=== PATIENT | female | born 1995 | race Caucasian/White ===

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

== ENCOUNTER 2019-09-17 09:00 | Inpatient (IN) | payer OTHER ==
[2019-09-17 10:14] VITALS: BMI 33.2
[2019-09-17 10:42] LABS: BASO % 0.4 % (0-2.0); EOS % 1.1 % (0-4.5); HEMATOCRIT 19.1 % (32.4-45.2); LYMPH % 23.3 % (8-40); MCHC 28.9 g/dl (32.0-36.0); MEAN CELL VOLUME 59.8 fl (80-96); MEAN PLT VOLUME 9.8 fl (7.5-11.1); MONO % 8.5 % (3.8-10.2); NEUT % 66.7 % (42.8-82.8); RBC 3.19 M/mm3 (3.60-5.2); RDW 20.9 % (11.6-15.6); WHITE BLOOD COUNT 7.4 K/mm3 (4.0-10.0)
[2019-09-17 10:50] LABS: INR 0.92 (0.83-1.09); PROTHROMBIN TIME (PATIENT) 10.8 SEC (9.7-13.0)
[2019-09-17 10:53] LABS: ACTIVATED PTT 25.1 SECONDS (25.2-36.5)
[2019-09-17 10:54] LABS: MCH 17.3 pg (25.7-33.7)
[2019-09-17 10:59] LABS: HEMOGLOBIN 5.5 GM/dL (10.7-15.3)
[2019-09-17 11:13] LABS: BLOOD UREA NITROGEN 8.9 mg/dL (7-18); CREATININE 0.5 mg/dL (0.55-1.3); POTASSIUM 4.1 mmol/L (3.5-5.1)
[2019-09-17 12:57] LABS: ANISOCYTOSIS 1+; MACROCYTOSIS 1+; PLATELET ESTIMATE NORMAL
[2019-09-17] MEDS ORDERED: DEXTROSE 5%-LACTATED RINGERS 1,000 ML IV SCH (14:00)
--- NOTE | 2019-09-17 14:07 | HP ---
Past Medical History - Admission Chief Complaint: Elective induction History of Present Illness: 24 yo @ 39 weeks gestation, EDC 09/19/19, admitted for induction of labor. She was found to be severely anemic; blood transfusion ordered. History Source: Patient Limitations to Obtaining History: No Limitations - Past Medical History ...: 2 ...Para: 1 ...Term: 1 ...: 0 ...Spon : 0 ...Induced : 0 ...Living Children: 1 ...Multiple Gestation: 0 ...EDC by Sono: 09/19/19 - Past Surgical History Past Surgical History: Yes: None Hx Myomectomy: No Hx Transabdominal Cerclage: No - Smoking History Smoking history: Never smoked Have you smoked in the past 12 months: No Aproximately how many cigarettes per day: 0 - Alcohol/Substance Use Hx Alcohol Use: No History of Substance Use: reports: None - Social History Usual Living Arrangement: Yes: With Significant Other History of Recent Travel: No Home Medications - Allergies Allergies/Adverse Reactions: Allergies Allergy/AdvReac Type Severity Reaction Status Date / Time No Known Allergies Allergy Verified 08/07/16 13:56 - Home Medications Home Medications: Ambulatory Orders Iron 1 tablet PO TID 11/11/16 Pnv 29-1 Tablet 1 tablet PO DAILY 11/11/16 Family Medical History Family History: Unremarkable Review of Systems - Review of Systems Constitutional: reports: No Symptoms Eyes: reports: No Symptoms HENT: reports: No Symptoms Neck: reports: No Symptoms Cardiovascular: reports: No Symptoms Respiratory: reports: No Symptoms Gastrointestinal: reports: No Symptoms Genitourinary: reports: No Symptoms Musculoskeletal: reports: No Symptoms Psychiatric: reports: No Symptoms Pain Intensity: 0 Physical Exam - Maternity Vital Signs: Vital Signs Temperature 98.8 F 09/17/19 12:00 Pulse Rate 93 H 09/17/19 11:00 Respiratory Rate 18 09/17/19 11:00 Blood Pressure 118/68 09/17/19 11:00 O2 Sat by Pulse Oximetry (%) Constitutional: Yes: No Distress Eyes: Yes: Conjunctiva Clear HENT: Yes: Atraumatic Neck: Yes: Supple Cardiovascular: Yes: Regular Rate and Rhythm Lungs: Clear to auscultation - Abdominal Exam/OB Number of Fetuses: Single Presentation: Vertex - Physical Exam ...Motor Strength: WNL Psychiatric: Yes: Alert, Oriented - Labs Lab Results: CBC, BMP 09/17/19 10:05 09/17/19 10:05 Problem List - Problems (1) 39 weeks gestation of Problems reviewed: Yes Code(s): Z3A.39 - 39 WEEKS GESTATION OF Assessment/Plan 39 weeks gestation Anemia of Blood Transfusion
[2019-09-17] MEDS ORDERED: ELECTROLYTE-148 SOLN 1,000 ML IV ONE (21:30)
--- NOTE | 2019-09-17 22:39 | PN ---
Progress Note (short form) - Note Progress Note: as per request of DR Franks , cervidil was inserted at 1035pm, fhr cat 1, no contraction cx 1 cm 50 vx -3 , fhr cat 1, no contraction
[2019-09-17] MEDS ORDERED: DINOPROSTONE 10 MG VAGINAL SUPPOSITORY VG ONE (22:51)
[2019-09-18] MEDS ORDERED: ELECTROLYTE-148 SOLN 1,000 ML IV ONE (06:00)
[2019-09-18] MEDS ORDERED: BUTORPHANOL TARTRATE 1 MG/ML VIAL IVPUSH PRN (11:22)
--- NOTE | 2019-09-18 11:22 | PN ---
Progress Note (short form) - Note Progress Note: 24 yo @ 39 weeks gestation, EDC 09/19/19, admitted for cervidil induction. Upon admission she was found to be severely anemic; she received 2u of PRBC's. She's seen and evaluated this morning. Cervidil was removed. FHR : Reassuring [place] : Irregular contractions VE : /-3 A/P : 39 weeks gestation Status post blood transfusion Status post Cervidil Start Pitocin Analgesia as needed Problem List - Problems (1) 39 weeks gestation of Code(s): Z3A.39 - 39 WEEKS GESTATION OF
[2019-09-18] MEDS ORDERED: PROMETHAZINE HCL 25 MG/1 ML VIAL IVPB PRN (11:23)
[2019-09-18] MEDS ORDERED: OXYTOCIN 30 UNITS in 0.9% NS 30 UNIT/500 ML INFUS.BAG IVPB SCH (11:30)
[2019-09-18 12:19] LABS: BASO % 0.4 % (0-2.0); EOS % 0.9 % (0-4.5); HEMATOCRIT 26.4 % (32.4-45.2); HEMOGLOBIN 7.9 GM/dL (10.7-15.3); MCHC 29.9 g/dl (32.0-36.0); MEAN CELL VOLUME 63.7 fl (80-96); MEAN PLT VOLUME 9.3 fl (7.5-11.1); MONO % 7.4 % (3.8-10.2); NEUT % 74.3 % (42.8-82.8); PLATELET COUNT 115 K/MM3 (134-434); RBC 4.15 M/mm3 (3.60-5.2); RDW 25.9 % (11.6-15.6); WHITE BLOOD COUNT 9.4 K/mm3 (4.0-10.0)
[2019-09-18] MEDS ORDERED: OXYTOCIN 30 UNITS in 0.9% NS 30 UNIT/500 ML INFUS.BAG IVPB ONE (12:20)
[2019-09-18] MEDS ORDERED: AMPICILLIN SODIUM 2 GM VIAL ONE (12:40)
[2019-09-18] MEDS ORDERED: AMPICILLIN - 2 GM in SODIUM CHLORIDE 100 ML IVPB ONE (12:45)
[2019-09-18] MEDS ORDERED: PROMETHAZINE HCL 25 MG/1 ML VIAL ONE (15:15)
[2019-09-18] MEDS ORDERED: BUTORPHANOL TARTRATE 1 MG/ML VIAL ONE ×2 (15:15)
[2019-09-18] MEDS ORDERED: AMPICILLIN SODIUM 1 GM VIAL ONE ×2 (16:10→21:20)
[2019-09-18] MEDS: AMPICILLIN - 1 GM in SODIUM CHLORIDE 100 ML IVPB SCH ×2 (16:29→20:44)
[2019-09-18] MEDS ORDERED: FENTANYL/BUPIVACAINE/NS/PF - PCEA - 50 ML DISP.SYRIN EP ONE (18:00)
[2019-09-18] MEDS ORDERED: PCA PUMP NR ONE (18:00)
[2019-09-18] MEDS ORDERED: NALOXONE HCL 0.4 MG/ML VIAL IVPUSH PRN (18:08)
[2019-09-18] MEDS ORDERED: BUPIVACAINE HCL/PF 0.25% (2.5MG/ML) 10 ML VIAL ONE (18:10)
[2019-09-18] MEDS ORDERED: FENTANYL/BUPIVACAINE/NS/PF - PCEA - 50 ML DISP.SYRIN EP SCH (18:15)
[2019-09-18 21:03] LABS: BASO % 0.1 % (0-2.0); EOS % 0.1 % (0-4.5); HEMATOCRIT 27.8 % (32.4-45.2); HEMOGLOBIN 8.4 GM/dL (10.7-15.3); LYMPH % 8.7 % (8-40); MEAN CELL VOLUME 64.2 fl (80-96); MEAN PLT VOLUME 10.1 fl (7.5-11.1); MONO % 5.2 % (3.8-10.2); NEUT % 85.9 % (42.8-82.8); PLATELET COUNT 138 K/MM3 (134-434); RBC 4.33 M/mm3 (3.60-5.2); WHITE BLOOD COUNT 11.8 K/mm3 (4.0-10.0)
[2019-09-18] MEDS ORDERED: OXYTOCIN 20 UNITS in 0.9% NS 20 UNIT/1,000 ML INFUS.BAG IV ONE (21:04)
[2019-09-18 21:11] LABS: MCH 19.3 pg (25.7-33.7)
[2019-09-18] MEDS ORDERED: BENZOCAINE 20% 57 GM BOTTLE TP PRN (21:57)
[2019-09-18] MEDS ORDERED: BENZOCAINE 28 GM HEMORRHOIDAL OINTMENT TP PRN (21:57)
[2019-09-18] MEDS ORDERED: ACETAMINOPHEN 325 MG TABLET (FP) PO PRN (21:57)
[2019-09-18] MEDS ORDERED: METHYLERGONOVINE MALEATE 0.2 MG/1 ML AMP IM PRN (21:57)
[2019-09-18] MEDS ORDERED: WITCH HAZEL 50% (TUCKS) 40 PAD/JAR PAD TP PRN (21:57)
[2019-09-18] MEDS ORDERED: BISACODYL 10 MG SUPP.RECT RC PRN (21:57)
[2019-09-18] MEDS ORDERED: OXYTOCIN 20 UNITS in 0.9% NS 20 UNIT/1,000 ML INFUS.BAG IV SCH (22:00)
--- NOTE | 2019-09-18 22:02 | PN ---
Delivery - Delivery Vaginal Delivery: Spontaneous Type of Anesthesia: Epidural Episiotomy/Laceration: 1st degree EBL (cc): 400 Delivery, Single - [place] Feeding Plan Initial Plan: Exclusive throughout hospitalization Remarks - Remarks Remarks: Normal spontaneous vaginal delivery of a live girl over first degree laceration. Nose / Oropharynx suctioned @ perineum. Nuchal cord x 1 clamped and cut. Baby handed to mother then to nurse. Placenta expelled spontaneously intact. Mother in stable condition.
[2019-09-18] MEDS ORDERED: IBUPROFEN 600 MG TABLET (FP) PO ONE (23:52)
[2019-09-18] MEDS: IBUPROFEN 600 MG TABLET (FP) PO PRN (23:53)
[2019-09-19] MEDS: AMPICILLIN - 1 GM in SODIUM CHLORIDE 100 ML IVPB SCH (07:28)
--- NOTE | 2019-09-19 07:49 | PN ---
Post Progress Note - Subjective Subjective: 24 yo Para 2 status post vaginal delivery, seen and evaluated. Doing well. Post Day: 1 Type of Delivery: Vital Signs: Vital Signs Temperature 98.4 F 09/18/19 23:00 Pulse Rate 97 H 09/18/19 22:45 Respiratory Rate 18 09/18/19 22:45 Blood Pressure 128/85 09/18/19 23:00 O2 Sat by Pulse Oximetry (%) 100 09/18/19 22:45 Breast Exam: Yes: Soft Uterus: Yes: Fundus Firm Abdomen/GI: Yes: Abdomen soft, Tolerating PO Lochia: Yes: Rubra Lochia, amount: Moderate Extremities: Yes: Calves non-tender Perineum: Yes: Intact Activity: Ambulating - Labs Labs: CBC WBC 11.8 K/mm3 (4.0-10.0) H 09/18/19 20:45 RBC 4.33 M/mm3 (3.60-5.2) 09/18/19 20:45 Hgb 8.4 GM/dL (10.7-15.3) L 09/18/19 20:45 Hct 27.8 % (32.4-45.2) L 09/18/19 20:45 MCV 64.2 fl (80-96) L 09/18/19 20:45 MCH 19.3 pg (25.7-33.7) L 09/18/19 20:45 MCHC 30.0 g/dl (32.0-36.0) L 09/18/19 20:45 RDW 26.0 % (11.6-15.6) H 09/18/19 20:45 Plt Count 138 K/MM3 (134-434) 09/18/19 20:45 MPV 10.1 fl (7.5-11.1) 09/18/19 20:45 Absolute Neuts (auto) 10.1 K/mm3 (1.5-8.0) H 09/18/19 20:45 Neutrophils % 85.9 % (42.8-82.8) H 09/18/19 20:45 Lymphocytes % 8.7 % (8-40) D 09/18/19 20:45 Monocytes % 5.2 % (3.8-10.2) 09/18/19 20:45 Eosinophils % 0.1 % (0-4.5) D 09/18/19 20:45 Basophils % 0.1 % (0-2.0) 09/18/19 20:45 Nucleated RBC % 0 % (0-0) 09/18/19 20:45 Hypochromia 1+ 09/17/19 10:05 Platelet Estimate Normal 09/17/19 10:05 Platelet Comment Present 09/17/19 10:05 Polychromasia 1+ 09/17/19 10:05 Anisocytosis 1+ 09/17/19 10:05 Microcytosis 2+ 09/17/19 10:05 Macrocytosis 1+ 09/17/19 10:05 Problem List - Problems (1) 39 weeks gestation of Problems reviewed: Yes Code(s): Z3A.39 - 39 WEEKS GESTATION OF (2) Status post normal vaginal delivery Problems reviewed: Yes Code(s): TKJ7048 - Assessment/Plan Status post vaginal delivery Stable Continue routine care
[2019-09-19 09:20] LABS: BASO % 0.1 % (0-2.0); EOS % 0.4 % (0-4.5); HEMATOCRIT 22.1 % (32.4-45.2); LYMPH % 14.4 % (8-40); MCHC 29.1 g/dl (32.0-36.0); MEAN CELL VOLUME 64.5 fl (80-96); MEAN PLT VOLUME 9.5 fl (7.5-11.1); MONO % 6.4 % (3.8-10.2); NEUT % 78.7 % (42.8-82.8); PLATELET COUNT 122 K/MM3 (134-434); RBC 3.43 M/mm3 (3.60-5.2); RDW 25.8 % (11.6-15.6); WHITE BLOOD COUNT 13.2 K/mm3 (4.0-10.0)
[2019-09-19] MEDS: FERROUS SO4 325 MG TABLET (FP) PO SCH ×3 (09:20→18:03)
[2019-09-19] MEDS: PRENATAL VITAMINS W/ FOLIC ACID TABLET (FP) PO SCH (09:20)
[2019-09-19 09:22] LABS: MCH 18.8 pg (25.7-33.7)
[2019-09-19 09:23] LABS: HEMOGLOBIN 6.4 GM/dL (10.7-15.3)
[2019-09-19 14:20] LABS: PLATELET ESTIMATE DECREASED
[2019-09-19] MEDS: IBUPROFEN 600 MG TABLET (FP) PO PRN (20:30)
[2019-09-19] MEDS ORDERED: SENNOSIDES/DOCUSATE COMBO (SENNA PLUS) TABLET (UD) PO PRN (22:00)
[2019-09-20 07:52] LABS: BASO % 0.3 % (0-2.0); EOS % 1.4 % (0-4.5); HEMATOCRIT 20.1 % (32.4-45.2); LYMPH % 24.5 % (8-40); MCHC 29.5 g/dl (32.0-36.0); MEAN CELL VOLUME 64.9 fl (80-96); MEAN PLT VOLUME 9.2 fl (7.5-11.1); MONO % 6.6 % (3.8-10.2); NEUT % 67.2 % (42.8-82.8); PLATELET COUNT 114 K/MM3 (134-434); RDW 26.5 % (11.6-15.6); WHITE BLOOD COUNT 10.5 K/mm3 (4.0-10.0)
[2019-09-20 08:00] LABS: MCH 19.1 pg (25.7-33.7)
[2019-09-20 08:03] LABS: HEMOGLOBIN 5.9 GM/dL (10.7-15.3)
[2019-09-20] MEDS: FERROUS SO4 325 MG TABLET (FP) PO SCH (09:12)
[2019-09-20] MEDS: PRENATAL VITAMINS W/ FOLIC ACID TABLET (FP) PO SCH (09:13)
[2019-09-20 11:57] VITALS: BP 105/66; PULSE 82; TEMP 97.6
== END 2019-09-20 10:50 | disposition home or self-care (01) | DRG 560 ==
LOC: JLDR 09:00 → J3W 12:56 → JLDR 23:13 → J3W 09-19 00:45
PROVIDERS: ADMIT Obstetrics & Gynecology; ATTEND Obstetrics & Gynecology
PROC: 3E0P7VZ Introduction of Hormone into Female Reproductive, Via Natural or Artificial Opening (ICD-10-PCS; 2019-09-17)
PROC: 10E0XZZ Delivery of Products of Conception, External Approach (ICD-10-PCS; principal; 2019-09-18)
PROC: 30233N1 Transfusion of Nonautologous Red Blood Cells into Peripheral Vein, Percutaneous Approach (ICD-10-PCS; 2019-09-18)
DX: O70.0 First degree perineal laceration during delivery (principal); O99.02 Anemia complicating childbirth; D64.9 Anemia, unspecified; O69.81X0 Labor and delivery complicated by cord around neck, without compression, not applicable or unspecified; Z3A.39 39 weeks gestation of pregnancy; Z37.0 Single live birth
CPT/HCPCS: 36415; 36430; 59409; 80048; 85025; 85610; 85730; 86780; 86850; 86870; 86900; 86901; 86902; 86922; 87389; P9058; U0003

== ENCOUNTER 2023-05-30 07:41 | Emergency (ER) | payer OTHER ==
[2023-05-30 07:49] VITALS: TEMP 97.7; BMI 22.7
[2023-05-30] MEDS ORDERED: ONDANSETRON 4 MG/2 ML VIAL ONE (08:11)
[2023-05-30] MEDS: SODIUM CHLORIDE 1,000 ML IV STA ×2 (08:24→12:35)
[2023-05-30] MEDS: ONDANSETRON 4 MG/2 ML VIAL IVPUSH ONE (08:24)
[2023-05-30 08:33] LABS: BASO % 0.2 % (0-2.0); EOS % 1.3 % (0-4.5); HEMATOCRIT 36.3 % (32.4-45.2); HEMOGLOBIN 11.6 GM/dL (10.7-15.3); LYMPH % 22.8 % (8-40); MCH 25.6 pg (25.7-33.7); MCHC 32.1 g/dl (32.0-36.0); MEAN CELL VOLUME 79.8 fl (80-96); MEAN PLT VOLUME 10.5 fl (7.5-11.1); NEUT % 67.7 % (42.8-82.8); PLATELET COUNT 226 10^3/uL (134-434); RBC 4.55 M/mm3 (3.60-5.2); RDW 19.1 % (11.6-15.6); WHITE BLOOD COUNT 6.5 K/mm3 (4.0-10.0)
[2023-05-30 08:54] LABS: CALCIUM 9.5 mg/dL (8.5-10.1)
[2023-05-30 08:55] LABS: BLOOD UREA NITROGEN 7.6 mg/dL (7-18)
[2023-05-30 08:58] LABS: CREATININE 0.7 mg/dL (0.55-1.3)
[2023-05-30] MEDS ORDERED: METOCLOPRAMIDE HCL INJECTION 10 MG/2 ML VIAL ONE (09:44)
[2023-05-30] MEDS: METOCLOPRAMIDE HCL INJECTION 10 MG/2 ML VIAL IVPUSH ONE (09:48)
[2023-05-30 11:38] VITALS: BP 113/85; PULSE 75; RESP 19
[2023-05-30] MEDS ORDERED: ACETAMINOPHEN INJECTION 100 ML IVPB ONE (12:18)
[2023-05-30] MEDS: ACETAMINOPHEN 1000 MG/100 ML BAG IVPB ONE (12:36)
== END 2023-05-30 11:37 | disposition home or self-care (01) ==
LOC: JERFT 07:41
PROC: 3E030NZ Introduction of Analgesics, Hypnotics, Sedatives into Peripheral Vein, Open Approach (ICD-10-PCS; principal; 2023-05-30)
PROC: 3E030GC Introduction of Other Therapeutic Substance into Peripheral Vein, Open Approach (ICD-10-PCS; 2023-05-30)
PROC: 3E030GC Introduction of Other Therapeutic Substance into Peripheral Vein, Open Approach (ICD-10-PCS; 2023-05-30)
PROC: 3E030GC Introduction of Other Therapeutic Substance into Peripheral Vein, Open Approach (ICD-10-PCS; 2023-05-30)
PROC: 3E0337Z Introduction of Electrolytic and Water Balance Substance into Peripheral Vein, Percutaneous Approach (ICD-10-PCS; 2023-05-30)
PROC: 3E0337Z Introduction of Electrolytic and Water Balance Substance into Peripheral Vein, Percutaneous Approach (ICD-10-PCS; 2023-05-30)
PROC: 3E023GC Introduction of Other Therapeutic Substance into Muscle, Percutaneous Approach (ICD-10-PCS; 2023-05-30)
DX: R11.2 Nausea with vomiting, unspecified (principal); R07.89 Other chest pain; R06.02 Shortness of breath; R42 Dizziness and giddiness; R51.9 Headache, unspecified; F41.0 Panic disorder [episodic paroxysmal anxiety]
CPT/HCPCS: 36415; 71275-TC; 80048; 84484; 84703; 85025; 93005; 93010; 99285-25; J0131; Q9967